=== PATIENT | female | born 1995 | race Caucasian/White ===

== ENCOUNTER 2017-07-30 16:50 | Emergency (ER) | payer BC, OTHER ==
[~2017-07-30 16:50] MED LIST: EMTRICITABINE/TENOFOVIR 200MG/300MG TAB PO SCH; RALTEGRAVIR 400 MG TAB PO SCH
[2017-07-30 16:56] VITALS: O2SAT 98
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
[2017-07-30] MEDS ORDERED: EMTRICITABINE/TENOFOVIR 200MG/300MG TAB PO ONE (19:03)
[2017-07-30] MEDS ORDERED: RALTEGRAVIR 400 MG TAB PO ONE (19:03)
[2017-07-30] MEDS ORDERED: ULIPRISTAL ACETATE 30 MG TAB PO ONE (20:03)
[2017-07-30] MEDS ORDERED: AZITHROMYCIN 250 MG TAB PO ONE (20:03)
[2017-07-30] MEDS ORDERED: ONDANSETRON DISINTEGRATING 4 MG TAB PO ONE ×2 (20:03)
[2017-07-30] MEDS ORDERED: CEFTRIAXONE IM 350 MG/ML SYRINGE IM ONE (20:15)
[2017-07-30 21:41] VITALS: BP 108/88; PULSE 76; RESP 16; TEMP 97.9
== END 2017-07-30 21:41 | disposition home or self-care (01) ==
LOC: EEVIPCON 16:50
DX: Z04.41 Encounter for examination and observation following alleged adult rape (principal); F17.200 Nicotine dependence, unspecified, uncomplicated
CPT/HCPCS: J0696